=== PATIENT | female | born 1960 ===

== ENCOUNTER 2018-12-06 15:25 | Outpatient (CLI) | payer OTHER ==
[~2018-12-06] VITALS: Ht 170.2 cm; Wt 83.9 kg
[2018-12-06] MEDS ORDERED: SYNTHROID175 MCG (18:17)
[2018-12-06] MEDS ORDERED: PRISTIQ25 MG (18:17)
== END 2018-12-06 15:45 | disposition home or self-care (01) ==
LOC: OFIC 805 15:25
DX: H92.03 Otalgia, bilateral (principal)

== ENCOUNTER → 2018-12-06 | Emergency (ER) | payer OTHER ==
[~2018-12-06] VITALS: Ht 170.2 cm; Wt 83.9 kg
[~2018-12-06] MED LIST: PRISTIQ25 MG; SYNTHROID175 MCG
== END | disposition home or self-care (01) ==
LOC: ER 18:08
DX: H66.93 Otitis media, unspecified, bilateral (principal); J32.8 Other chronic sinusitis